=== PATIENT | male | born 1975 | race Caucasian/White ===

== ENCOUNTER → 2016-12-17 | Outpatient (CLI) | payer OTHER ==
[~2016-12-17] MED LIST: NORCO 7.5-3251 EACH PO
== END ==
LOC: CT 10:49
DX: S52.109A Unspecified fracture of upper end of unspecified radius, initial encounter for closed fracture (principal); S42.291A Other displaced fracture of upper end of right humerus, initial encounter for closed fracture; M24.411 Recurrent dislocation, right shoulder; S42.131A Displaced fracture of coracoid process, right shoulder, initial encounter for closed fracture
CPT/HCPCS: 73200

== ENCOUNTER → 2016-12-26 | Day surgery (SDC) | payer OTHER ==
[~2016-12-26] VITALS: Ht 172.7 cm; Wt 68.0 kg
[2016-12-26 09:03] LABS: HEMOGLOBIN 15.1 gm/dl (14.0-17.5); RED BLOOD COUNT 4.92 M/UL (4.20-5.50); WHITE BLOOD COUNT 5.4 K/UL (4.5-11.0)
[2016-12-26 09:22] LABS: BUN/CREATININE RATIO 13 (0-10)
== END | disposition home or self-care (01) ==
LOC: OR 08:11
PROVIDERS: Orthopaedic Surgery
PROC: 0RQJ0ZZ Repair Right Shoulder Joint, Open Approach (ICD-10-PCS; 2016-12-26)
PROC: 0PSC04Z Reposition Right Humeral Head with Internal Fixation Device, Open Approach (ICD-10-PCS; principal; 2016-12-26 12:15)
DX: S42.91XA Fracture of right shoulder girdle, part unspecified, initial encounter for closed fracture (principal); S46.011A Strain of muscle(s) and tendon(s) of the rotator cuff of right shoulder, initial encounter; Z79.899 Other long term (current) drug therapy; Z79.1 Long term (current) use of non-steroidal anti-inflammatories (NSAID); E11.9 Type 2 diabetes mellitus without complications; M19.90 Unspecified osteoarthritis, unspecified site; F17.210 Nicotine dependence, cigarettes, uncomplicated; W22.8XXA Striking against or struck by other objects, initial encounter
CPT/HCPCS: 73020; 76000; 80048; 82962; 85027; J0690; J1100; J2250; J2405; J2795; J3010; J7030; J7120